=== PATIENT | male | born 1960 | race African-American/Black ===

== ENCOUNTER 2017-01-16 20:00 | Inpatient (IN) | payer MEDICAID ==
[~2017-01-16] VITALS: Ht 170.2 cm; Wt 66.2 kg
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
--- NOTE | ~2017-01-16 | PN ---
Unit #: [id number] #: [id number] Patient: LEXY MURRAY [id number] [facility] [address] [place] [address] [id number] I MR#: [id number] NAME: LEXY MURRAY ROOM: [facility] Age: 56 Sex: M Admission Date: 01/17/2017 : 1960 Attending Physician: Mekhi Alvarado M.D. Admitting Physician: Mekhi Alvarado M.D. Primary Care Physician: Primary Care Physician Arin DRISCOLL NOTES DATE 01/21/2017 DISCUSSION Mr. Murray is a 56-year-old, male who was seen today and chart was reviewed and case was discussed with the staff. He has been anxious, withdrawn and rather seclusive to himself. Meanwhile, he has been cooperative with treatment recommendations. He has been taking medications and tolerating them fairly well with no reported side effects. MENTAL STATUS EXAM Middle-aged male who was casually dressed with fair personal hygiene, appears to be in no acute distress or discomfort. He was awake and alert with impaired attention and concentration. His mood was anxious with congruent affect. He denies any suicidal or homicidal ideation. His insight and judgement remains slightly impaired. TREATMENT PLAN 1. We will continue him on his current treatment protocol. We will monitor his response and make further adjustments as needed. 2. We will continue to follow up. Dictated by... Shala Iverson/bentley TD: 01/22/2017 00:42 JOB #: [id number] Unit #: [id number] #: [id number] Patient: LEXY MURRAY PROGRESS NOTES Page 1 of 1 X Mekhi Alvarado MD PROGRESS NOTE
--- NOTE | ~2017-01-16 | PN ---
Unit #: [id number] #: [id number] Patient: LEXY HERNANDEZ [id number] [facility] [address] [place] [address] [id number] I MR#: [id number] NAME: LEXY HERNANDEZ ROOM: P205 Age: 56 Sex: M Admission Date: 01/17/2017 : 1960 Attending Physician: Mekhi Alvarado M.D. Admitting Physician: Mekhi Alvarado M.D. Primary Care Physician: Primary Care Physician Arin DRISCOLL NOTES DATE OF SERVICE 01/19/2017 DISCUSSION Mr. Hernandez is a 56-year-old male who was seen today. Chart was reviewed and case was discussed with the staff. He has been anxious, withdrawn, and rather seclusive to himself. Meanwhile, he has been cooperative with treatment recommendations and has been taking the medications and tolerating them fairly well. MENTAL STATUS EXAMINATION Middle-aged male who is casually dressed with fair personal hygiene, appears to be in no acute distress or discomfort. He was awake and alert with impaired attention and concentration. His mood is anxious with congruent affect. His speech is slow and restricted in content. His thought processes were disorganized with some looseness of associations. His insight and judgment remain slightly impaired. TREATMENT PLAN 1. We will continue him on his current medications and treatment protocol. We will monitor his response and make further adjustments as needed. 2. We will continue to follow up. Dictated by... Mekhi Alvarado M.D. IAA/bzg TD: 01/21/2017 12:04 JOB #: [id number] Unit #: [id number] #: [id number] Patient: LEXY HERNANDEZ PROGRESS NOTES Page 1 of 1 X Mekhi Alvarado MD PROGRESS NOTE
--- NOTE | ~2017-01-16 | PN ---
Unit #: [id number] #: [id number] Patient: LEXY HERNANDEZ [id number] [facility] [address] [place] [address] [id number] I MR#: [id number] NAME: LEXY HERNANDEZ ROOM: [facility]5 Age: 56 Sex: M Admission Date: 01/17/2017 : 1960 Attending Physician: Mekhi Alvarado M.D. Admitting Physician: Mekhi Alvarado M.D. Primary Care Physician: Primary Care Physician Arin DRISCOLL NOTES DATE OF SERVICE 01/18/2017 DISCUSSION Mr. Hernandez is a 56-year-old male with mood disorder. Chart was reviewed and case was discussed with staff. He remained anxious, withdrawn, and rather seclusive to himself. Reported persistent depressive symptoms. Meanwhile, he has been taking the medications and tolerating them fairly well with no reported side effects. MENTAL STATUS EXAMINATION Middle-aged male who is casually dressed with fair personal hygiene and appears to be in no acute distress or discomfort. The patient was awake and alert on interaction with intact orientation. His mood is anxious and depressed with congruent affect. His speech is slow and goal-directed. He reports having suicidal and vague homicidal ideations. His insight and judgment remain significantly impaired. TREATMENT PLAN 1. We will continue him on his current medications and treatment protocol. We will monitor his response to the medications and make further adjustments as needed. 2. We will continue to follow up. Dictated by... Mekhi Alvarado M.D. IAA/bzg TD: 01/18/2017 18:46 JOB #: [id number] Unit #: [id number] #: [id number] Patient: LEXY HERNANDEZ PROGRESS NOTES Page 1 of 1 X Mekhi Alvarado MD PROGRESS NOTE
--- NOTE | ~2017-01-16 | DS ---
Unit #: [id number] #: [id number] Patient: LEXY MURRAY [id number] [place] [address] [id number] I MR#: [id number] NAME: LEXY MURRAY ROOM: [facility]5 Age: 56 Sex: M Admission Date: 01/17/2017 : 1960 Discharge Date: 01/22/2017 Attending Physician: Mekhi Alvarado M.D. Primary Care Physician: Primary Care Physician No DISCHARGE SUMMARY IDENTIFYING DATA Mr. Murray is a 56-year-old single male, who is a resident of [place], [place] and was transferred to us from [facility] emergency room. DISCHARGE DIAGNOSIS PSYCHIATRIC 1. Alcohol dependence moderate and acute withdrawals. 2. Alcohol induced mood disorder. MEDICAL None. STRESSORS Moderate psychosocial stressors. HISTORY OF PRESENT ILLNESS Please see initial psychiatric evaluation for details. PAST PSYCHIATRIC HISTORY Please see initial psychiatric evaluation for details. PAST MEDICAL HISTORY Please see initial psychiatric evaluation for details. HOSPITAL COURSE The patient was admitted to the adult chemical dependency and psychiatric unit at [facility] and was oriented to the hospital environment. Routine p.r.n. medications were initiated and he was started on alcohol detox protocol and also started on Risperdal to help his mood and anger and aggression and thoughts of wanting to hurt other people and was closely monitored. He was taking the medications regularly and he was tolerating them fairly well and was able to show a decent therapeutic response with improvement in depression and anxiety and as such it was decided that he will be discharged home. We will continue treatment on outpatient basis. DISCHARGE MEDICATIONS Risperdal 1 mg twice a day. CONDITION AT DISCHARGE Stable. PROGNOSIS Unit #: [id number] #: [id number] Patient: LEXY MURRAY. Dictated by... Shala Iverson/bentley TD: 01/23/2017 04:25 JOB #: [id number] DISCHARGE SUMMARY Page 1 of 1 X Mekhi Alvarado MD X DISCHARGE SUMMARY
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
--- NOTE | ~2017-01-16 | PN ---
Unit #: [id number] #: [id number] Patient: LEXY MURRAY [id number] [facility] [address] [place] [address] [id number] MR#: [id number] NAME: LEXY MURRAY ROOM: P205 Age: 56 Sex: M Admission Date: 01/17/2017 : 1960 Attending Physician: Mekhi Alvarado M.D. Admitting Physician: Mekhi Alvarado M.D. Primary Care Physician: Primary Care Physician Arin SERRATO PROGRESS NOTES DATE OF SERVICE: 01/20/2017 SUBJECTIVE Mr. Murray is a 56-year-old male, who was seen today and chart was reviewed and case was discussed with the staff. He has been anxious, withdrawn, and rather seclusive to himself. Meanwhile, he has been cooperative with treatment recommendations and has been taking the medications and tolerating them fairly well with no reported side effects. MENTAL STATUS EXAMINATION Middle-aged male who was casually dressed with marginal personal hygiene, appears to be in no acute distress or discomfort. He was awake and alert with impaired attention and concentration. His mood was anxious with a congruent affect. He denies any suicidal or homicidal ideation. His insight and judgment remain slightly impaired. TREATMENT PLAN 1. We will continue on his current medications and treatment protocol. We will monitor his response to the medications and make further adjustments as needed. 2. We will continue to follow up. Dictated by... Shala Iverson/esmel TD: 01/22/2017 03:06 JOB #: [id number] [facility] PROGRESS NOTES Page 1 of 1 X Mekhi Alvarado MD PROGRESS NOTE
[2017-01-17 10:25] LABS: URINE APPEARANCE CLEAR; URINE BILIRUBIN NEG (NEG); URINE BLOOD NEG (NEG); URINE COLOR YELLOW; URINE GLUCOSE NEG (NEG); URINE KETONE NEG (NEG); URINE LEUKOCYTE ESTERASE NEG (NEG); URINE NITRATE NEG (NEG); URINE PROTEIN NEG (NEG); URINE SPECIFIC GRAVITY 1.007 (1.003-1.035); URINE UROBILINOGEN 0.2 MG/DL (NEG)
[2017-01-17 10:39] LABS: AMPHETAMINE NEG (NEG); BARBITURATES NEG (NEG); BENZODIAZEPINES NEG (NEG); COCAINE POS (NEG); MARIJUANA NEG (NEG); OPIATES NEG (NEG); TRICYCLIC ANTIDEPRESSANTS NEG (NEG); U METHADONE NEG (NEG)
[2017-01-17 12:49] LABS: BASOPHIL# 0.1 X10e3 (0-0.3); BASOPHIL% 0.8 % (0-2.5); EOSINOPHIL# 0.1 X10e3 (0-0.7); EOSINOPHIL% 0.5 % (0.0-7.0); HEMATOCRIT 39.6 % (38.0-50.0); HEMOGLOBIN 12.8 gm/dL (13.0-16.0); LYMPHOCYTE# 1.6 X10e3 (1.0-3.5); LYMPHOCYTE% 13.3 % (17.0-45.0); MEAN CELL VOLUME 101.9 FL (83-96); MEAN CORPUSCULAR HEMOGLOBIN 32.8 PG (28-34); MEAN CORPUSCULAR HGB CONC 32.2 g/dL (30-36); MEAN PLATELET VOLUME 8.8 FL (6.5-11.5); MONOCYTE# 1.2 X10e3 (0-1.0); MONOCYTE% 9.7 % (3.0-12.0); NEUTROPHIL% 75.7 % (40-75); PLATELET COUNT 229 X10e3 (140-420); RED BLOOD COUNT 3.89 X10e (3.90-5.60); WHITE BLOOD COUNT 11.9 X10e3 (4.0-10.5)
[2017-01-17 12:54] LABS: DIFF IND NO
== END 2017-01-22 11:13 | disposition home or self-care (01) | DRG 897 ==
LOC: P2S 01-17 02:00
PROVIDERS: Psychiatry & Neurology Psychiatry
DX: F10.239 Alcohol dependence with withdrawal, unspecified (principal); F10.24 Alcohol dependence with alcohol-induced mood disorder; Z88.6 Allergy status to analgesic agent; Z88.0 Allergy status to penicillin
CPT/HCPCS: 80307; 81003; 85025; 86592